=== PATIENT | male | born 1960 | race Caucasian/White ===

== ENCOUNTER 2021-02-01 14:02 | Emergency (ER) | payer MEDICARE, MEDICAID ==
[~2021-02-01] VITALS: Ht 172.7 cm; Wt 92.7 kg
[~2021-02-01 14:02] MED LIST: CITA20TA28 PO; DIVA-76 PO; FENO145T26 PO; GLYB2.5T4 PO; INSU100V36 SQ; LANTUS SQ; LEVO75TA PO; OMEP20CA15 PO; ZOC40T PO
[2021-02-01 14:06] VITALS: BP 146/70
[2021-02-01 14:28] LABS: CLARITY,URINE CLEAR (Clear); COLOR,URINE STRAW (Yellow); GLUCOSE, URINE >=1000 mg/dl (Neg); KETONES,URINE NEGATIVE (Neg); LEUKOCYTE ESTERASE ,URINE NEGATIVE (Neg); NITRITES, URINE NEGATIVE (Neg); OCCULT BLOOD,URINE NEGATIVE (Neg); PH,URINE 5.5 (4.8-8.0); PROTEIN,URINE NEGATIVE (Neg); UROBILINOGEN,URINE 0.2 E.U/dL (0.2-1.0)
[2021-02-01 14:37] LABS: UA COLLECTION TYPE CLN CATCH MIDSTREAM
[2021-02-01 14:38] LABS: BACTERIA,URINE FEW /HPF (Neg); RBC,URINE 0-2 /HPF (0-2); SQUAMOUS EPITHELIAL CELL,UR FEW /LPF (FEW); WBC,URINE 0-4 /HPF (0-4)
[2021-02-01] MEDS ORDERED: CefTRIAXone 1000mg IM Kit (w/lidocaine diluent) IM STA (18:26)
[2021-02-01] MEDS ORDERED: azithromycin 250mg tablet PO ONE (18:30)
== END 2021-02-01 18:43 | disposition home or self-care (01) ==
LOC: ER 14:03
DX: N50.811 Right testicular pain (principal); Z79.4 Long term (current) use of insulin; Z79.899 Other long term (current) drug therapy
CPT/HCPCS: 36415; 76870; 81001; 87491; 87591; 93976; 96372; 99284; J0696